=== PATIENT | female | born 1965 | race Caucasian/White ===

== ENCOUNTER → 2017-07-16 | Day surgery (SDC) | payer BC ==
[~2017-07-16] MED LIST: CHLORHEXIDINE 0.12% 15 ML MOUTHWASH. SWSP; DEXAMETHASONE SOD PHOS 20 MG/5 ML VIAL.; GELATIN SPONGE SIZE 12-7MM SPONGE.; GLYCOPYRROLATE 1 MG/5 ML VIAL.; LIDOCAINE 1% PF 2 ML VIAL. ID; LIDOCAINE 2% PF Vial for OR 5 ML VIAL.; MIDAZOLAM HCL/PF 2 MG/2 ML VIAL.; MORPHINE SULFATE 2 MG/ML DISP.SYRIN. IV; NEOSTIGMINE 10 MG/10 ML VIAL.; ONDANSETRON PF 4 MG/2 ML VIAL.; ONDANSETRON PF 4 MG/2 ML VIAL. IV; OXYMETAZOLINE 0.05% NASAL SPRAY 30ML BOTTLE. NS; PHENYLEPHRINE in 0.9% NACL PF 1 MG/10 ML SYRINGE. IV; PROCHLORPERAZINE 10 MG/2 ML VIAL. IV; PROPOFOL 20 ML IV; ROCURONIUM 50 MG/5 ML VIAL.; SEVOFLURANE 61 TO 120 MINUTES. IH; ceFAZolin 2GM PREMIX 2 GM/50 ML BAG IV; fentaNYL PF VIAL 100 MCG/2 ML VIAL; fentaNYL PF VIAL 100 MCG/2 ML VIAL IV
[2017-07-16] MEDS: CHLORHEXIDINE 0.12% 15 ML MOUTHWASH. SWSP (12:00)
[2017-07-16 12:30] LABS: POC GLUCOSE 169 mg/dL (70-99)
[2017-07-16] MEDS: IV RINGERS,LACTATED 1000ML 1,000 ML IV (12:32)
[2017-07-16] MEDS: BUPIVACAINE-EPI 0.25%-1:200000 50 ML VIAL. (13:19)
[2017-07-16] MEDS: BACITRACIN 50,000 UNIT in IV NORMAL SALINE 500ML BAG 500 ML IRR (13:19)
[2017-07-16] MEDS: GELATIN SPONGE SIZE 100. (13:33)
[2017-07-16] MEDS: oxyCODONE/APAP 5/325 1 TAB TABLET PO (16:05)
== END | disposition home or self-care (01) ==
LOC: SURG 11:08
DX: K02.9 Dental caries, unspecified (principal); E78.00 Pure hypercholesterolemia, unspecified; I10 Essential (primary) hypertension; J44.9 Chronic obstructive pulmonary disease, unspecified; F41.9 Anxiety disorder, unspecified; F32.9 Major depressive disorder, single episode, unspecified; M19.90 Unspecified osteoarthritis, unspecified site; Z72.89 Other problems related to lifestyle; Z79.899 Other long term (current) drug therapy; Z86.69 Personal history of other diseases of the nervous system and sense organs; Z90.710 Acquired absence of both cervix and uterus; Z87.39 Personal history of other diseases of the musculoskeletal system and connective tissue; Z86.39 Personal history of other endocrine, nutritional and metabolic disease; Z88.1 Allergy status to other antibiotic agents
CPT/HCPCS: 41874; 82962; J0690; J1100; J2250; J2370; J2405; J2704; J2710; J3010; J3490; J7040